=== PATIENT | female | born 1965 | race Caucasian/White ===

== ENCOUNTER 2020-02-03 11:28 | Outpatient (CLI) | payer BC | END 2020-02-03 23:59 | disposition home or self-care (01) | LOC: MRI 11:28 | PROVIDERS: ATTEND Legal Medicine | DX: M47.817 Spondylosis without myelopathy or radiculopathy, lumbosacral region (principal); M51.27 Other intervertebral disc displacement, lumbosacral region; M48.07 Spinal stenosis, lumbosacral region; M76.02 Gluteal tendinitis, left hip; M76.01 Gluteal tendinitis, right hip | CPT/HCPCS: 72148-TC; 73721-TC ==

== ENCOUNTER 2020-08-03 15:46 | Outpatient (CLI) | payer BC | END 2020-08-03 23:59 | disposition home or self-care (01) | LOC: MSC 15:46 | PROVIDERS: ATTEND Anesthesiology | DX: M79.604 Pain in right leg (principal); M51.36 Other intervertebral disc degeneration, lumbar region; M51.26 Other intervertebral disc displacement, lumbar region; M46.96 Unspecified inflammatory spondylopathy, lumbar region; M62.830 Muscle spasm of back ==

== ENCOUNTER 2022-10-13 12:16 | Outpatient (CLI) | payer BC | END 2022-10-13 23:59 | disposition home or self-care (01) | LOC: MRI 12:16 | PROVIDERS: ATTEND Legal Medicine | DX: M51.27 Other intervertebral disc displacement, lumbosacral region (principal); M48.07 Spinal stenosis, lumbosacral region; M50.21 Other cervical disc displacement, high cervical region; M47.817 Spondylosis without myelopathy or radiculopathy, lumbosacral region; M47.812 Spondylosis without myelopathy or radiculopathy, cervical region; M48.02 Spinal stenosis, cervical region | CPT/HCPCS: 72141-TC; 72148-TC ==